=== PATIENT | male | born 1990 | race Caucasian/White ===

== ENCOUNTER 2022-06-15 07:11 | Emergency (ER) | payer SELFPAY ==
[2022-06-15] VITALS (7 sets, daily range): BP systolic 112–135; BP diastolic 67–79
[~2022-06-15] VITALS: Ht 182.9 cm; Wt 70.5 kg
[2022-06-15] MEDS ORDERED: ZOLOFT50 MG PO (09:38)
== END 2022-06-15 10:48 | disposition home or self-care (01) | DRG 563 ==
LOC: ED 07:11
DX: S42.022A Displaced fracture of shaft of left clavicle, initial encounter for closed fracture (principal); X58.XXXA Exposure to other specified factors, initial encounter